=== PATIENT | male | born 1975 | race American Indian/Alaskan Native ===

== ENCOUNTER 2019-08-10 11:24 | Inpatient (IN) | payer OTHER ==
[2019-08-10] MEDS ORDERED: FAMOTIDINE 20 MG/2 ML INJ IV ONE ×2 (11:42→12:21)
[2019-08-10] MEDS ORDERED: PROPOFOL 200 MG/20 ML VIAL IV ONE ×2 (11:48→12:00)
[2019-08-10] MEDS ORDERED: SODIUM CHLORIDE 0.9% 1000 ML 2,000 ML ONE (11:51)
[2019-08-10] MEDS ORDERED: diphenhydrAMINE 50 MG/ML VIAL IV ONE (12:20)
[2019-08-10] MEDS ORDERED: PROPOFOL 1,000 MG/100 ML BOTTLE IV ONE ×2 (12:20→19:13)
--- NOTE | 2019-08-10 12:28 | Emergency Department Report ---
ED Allergic Reaction HPI - General Chief complaint: Allergic Reaction Stated complaint: ALLERGIC REACTION Time Seen by Provider: 08/10/19 12:18 Source: patient, EMS Mode of arrival: Stretcher Limitations: No Limitations - History of Present Illness Initial Comments: Patient is 44-year-old male with history of hypertension on lisinopril. Patient presented to the ER via EMS for evaluation of lip swelling, difficulty swallowing and difficulty breathing. Patient stated that he has been taking lisinopril for a while. Patient is anxious with significant upper and lower lips swelling and gargling. Patient stated that he is unable to lay flat because he feel that his throat is closing. I immediately recognized that there is an airway compromised and I immediately consulted anesthesia for possible difficult intubation. Patient already received Solu-Medrol 125 mg IV, Benadryl 25 mg by EMS. Patient also received a 0.3 mg of epinephrine IM. After multiple trial by anesthesiologist using different tools patient was finally intubated. For further information about intubation please refer to Dr. Caballero, anesthesiologist's note. MD Complaint: allergic reaction, facial swelling -: This morning Exposure: medication Symptoms: facial swelling, lip swelling, difficulty swallowing, difficulty breathing, orolingual swelling, hoarseness Severity: severe Treatment Prior to Arrival: benadryl, epinephrine, steroids Previous Allergy History: prior ED visit(s), angioedema - Related Data Allergies Allergy/AdvReac Type Severity Reaction Status Date / Time lisinopril Allergy Angioedema Verified 08/10/19 11:44 ED Review of Systems ROS: Stated complaint: ALLERGIC REACTION Other details as noted in HPI Comment: All other systems reviewed and negative Constitutional: denies: chills, fever Respiratory: shortness of breath, SOB at rest. denies: cough, wheezing Cardiovascular: denies: chest pain Gastrointestinal: denies: abdominal pain, nausea, vomiting Musculoskeletal: denies: back pain Neurological: denies: headache, weakness, numbness, paresthesias, confusion ED Past Medical Hx - Past Medical History Previous Medical History?: Yes Hx Hypertension: Yes - Social History Smoking Status: Unknown if ever smoked ED Physical Exam - General Limitations: No Limitations General appearance: in distress - Head Head exam: Present: atraumatic, normocephalic, normal inspection - Eye Eye exam: Present: normal appearance, PERRL - ENT ENT exam: Present: other (significant upper and lower lip swelling with his significant orolingual swelling.) - Neck Neck exam: Present: normal inspection, full ROM. Absent: tenderness, meningismus, lymphadenopathy, thyromegaly - Respiratory Respiratory exam: Present: normal lung sounds bilaterally - Cardiovascular Cardiovascular Exam: Present: regular rate, normal rhythm, normal heart sounds - GI/Abdominal GI/Abdominal exam: Present: soft, normal bowel sounds. Absent: distended, t enderness, guarding, rebound, rigid - Extremities Exam Extremities exam: Present: normal inspection, full ROM, normal capillary refill. Absent: tenderness, pedal edema, joint swelling, calf tenderness - Back Exam Back exam: Present: normal inspection, full ROM. Absent: CVA tenderness (R), muscle spasm - Neurological Exam Neurological exam: Present: alert, oriented X3, CN II-XII intact, normal gait, reflexes normal. Absent: motor sensory deficit - Psychiatric Psychiatric exam: Present: normal mood, anxious - Skin Skin exam: Present: warm, intact ED Course Vital Signs 08/10/19 08/10/19 08/10/19 11:35 11:54 12:00 Temperature 98.3 F 97.6 F Pulse Rate 100 H 110 H Respiratory 24 16 22 Rate Blood Pressure 182/100 Blood Pressure 224/134 [Right] O2 Sat by Pulse 98 100 Oximetry 08/10/19 08/10/19 08/10/19 12:35 13:00 13:10 Temperature Pulse Rate 107 H 106 H Respiratory 22 24 Rate Blood Pressure 183/121 Blood Pressure 188/114 [Right] O2 Sat by Pulse 98 100 Oximetry 08/10/19 08/10/19 08/10/19 13:30 14:00 14:40 Temperature Pulse Rate 84 75 63 Respiratory 22 18 20 Rate Blood Pressure Blood Pressure 139/83 123/83 87/52 [Right] O2 Sat by Pulse 100 100 99 Oximetry 08/10/19 08/10/19 08/10/19 15:12 15:18 15:43 Temperature Pulse Rate 59 L 59 L 56 L Respiratory 20 20 20 Rate Blood Pressure 86/52 Blood Pressure [Right] O2 Sat by Pulse 100 100 100 Oximetry 08/10/19 08/10/19 08/10/19 15:45 16:00 16:15 Temperature Pulse Rate 56 L 56 L 54 L Respiratory 19 19 19 Rate Blood Pressure 101/59 100/64 98/62 Blood Pressure 100/64 [Right] O2 Sat by Pulse 100 100 100 Oximetry 08/10/19 08/10/19 08/10/19 16:17 16:30 16:45 Temperature Pulse Rate 52 L 56 L 54 L Respiratory 20 20 Rate Blood Pressure 98/62 98/62 109/71 Blood Pressure [Right] O2 Sat by Pulse 100 100 100 Oximetry 08/10/19 08/10/19 08/10/19 17:00 17:15 17:30 Temperature Pulse Rate 56 L 63 55 L Respiratory 20 20 20 Rate Blood Pressure 102/67 120/56 103/62 Blood Pressure [Right] O2 Sat by Pulse 100 100 100 Oximetry 08/10/19 08/10/19 08/10/19 17:46 18:00 18:15 Temperature Pulse Rate 52 L 54 L 55 L Respiratory 20 20 20 Rate Blood Pressure 140/79 113/70 122/71 Blood Pressure [Right] O2 Sat by Pulse 100 100 100 Oximetry 08/10/19 08/10/19 08/10/19 18:30 18:45 19:00 Temperature Pulse Rate 57 L 57 L 54 L Respiratory 20 20 20 Rate Blood Pressure 124/63 116/74 120/72 Blood Pressure [Right] O2 Sat by Pulse 100 100 100 Oximetry 08/10/19 08/10/19 08/10/19 19:16 19:26 19:30 Temperature Pulse Rate 59 L 58 L 73 Respiratory 20 16 Rate Blood Pressure 149/77 149/77 157/95 Blood Pressure [Right] O2 Sat by Pulse 100 100 100 Oximetry 08/10/19 08/10/19 08/10/19 20:00 21:00 21:36 Temperature Pulse Rate 67 59 L Respiratory 20 20 Rate Blood Pressure 158/80 97/58 Blood Pressure 115/69 [Right] O2 Sat by Pulse 100 98 Oximetry 08/10/19 08/10/19 08/10/19 22:00 23:00 23:13 Temperature Pulse Rate 56 L 58 L 75 Respiratory 20 20 Rate Blood Pressure 104/63 147/79 147/79 Blood Pressure [Right] O2 Sat by Pulse 98 99 100 Oximetry 08/11/19 08/11/19 08/11/19 00:00 00:02 01:00 Temperature Pulse Rate 57 L 58 L 57 L Respiratory 20 20 20 Rate Blood Pressure 121/67 121/67 113/65 Blood Pressure [Right] O2 Sat by Pulse 99 98 99 Oximetry 08/11/19 08/11/19 08/11/19 02:00 03:00 03:23 Temperature Pulse Rate 52 L 52 L 52 L Respiratory 20 20 Rate Blood Pressure 126/67 123/72 123/72 Blood Pressure [Right] O2 Sat by Pulse 100 100 99 Oximetry 08/11/19 08/11/19 08/11/19 04:00 05:00 06:00 Temperature Pulse Rate 59 L 51 L 52 L Respiratory 20 20 20 Rate Blood Pressure 126/93 116/65 123/70 Blood Pressure [Right] O2 Sat by Pulse 100 99 100 Oximetry 08/11/19 08/11/19 08/11/19 07:00 07:08 08:00 Temperature 97.7 F Pulse Rate 50 L 60 50 L Respiratory 19 16 17 Rate Blood Pressure 113/64 124/75 Blood Pressure 117/73 [Right] O2 Sat by Pulse 100 100 99 Oximetry ED Medical Decision Making - Lab Data Result diagrams: 08/11/19 04:31 08/11/19 04:31 - Radiology Data Radiology results: report reviewed - Medical Decision Making Patient is 44-year-old male with history of hypertension on lisinopril. Patient presented to the ER via EMS for evaluation of lip swelling, difficulty swallowing and difficulty breathing. Patient stated that he has been taking lisinopril for a while. Patient is anxious with significant upper and lower lips swelling and gargling. Patient stated that he is unable to lay flat because he feel that his throat is closing. I immediately recognized that there is an airway compromised and I immediately consulted anesthesia for possible difficult intubation. Patient already received Solu-Medrol 125 mg IV, Benadryl 25 mg by EMS. Patient also received a 0.3 mg of epinephrine IM. After multiple trial by anesthesiologist using different tools patient was finally intubated. For further information about intubation please refer to Dr. Caballero, anesthesiologist's note. Labs reviewed and is unremarkable. Chest x-ray show satisfactory position for the endotracheal tube. Patient remained stable on the patient. I discussed the patient with Dr. Franz, he agreed to admit the patient to medical service for further management. Critical Care Time: Yes Critical care time in (mins) excluding proc time.: 60 Critical care attestation.: If time is entered above; I have spent that time in minutes in the direct care of this critically ill patient, excluding procedure time. ED Disposition Clinical Impression: Acute respiratory failure Angioedema Qualifiers: Encounter type: initial encounter Qualified Code(s): T78.3XXA - Angioneurotic edema, initial encounter Disposition: 09 OP ADMIT IP TO THIS HOSP Is pt being admited?: Yes Condition: Stable
[2019-08-10] MEDS: PROPOFOL 1,000 MG/100 ML BOTTLE IV SCH ×5 (12:30→19:15)
[2019-08-10] MEDS ORDERED: LIP THERAPY VASELINE TP PRN (12:35)
[2019-08-10] MEDS ORDERED: MINERAL OIL/PETROLATUM, WHITE OPHTH OINT 3.5 GM OU PRN (12:35)
[2019-08-10] MEDS ORDERED: fentaNYL DRIP Premix 2,000 MCG/100 ML BAG IV ONE ×2 (12:45→19:13)
[2019-08-10] MEDS ORDERED: MIDAZOLAM 5 MG/5 ML INJ MDV IV ONE ×2 (12:45→20:25)
--- NOTE | 2019-08-10 12:51 | Event Note ---
Date: 08/10/19 Anesthesia called to the ER for possible angioedema/swelling in the throat. Upon arrival pt was noted to be awake, alert, oriented, and spontaneously breathing on a facemask. Intubation process explained to him by MARY LOU. Pt. preoxygenated and then Propofol, lidocaine, and succs was given IV. Glidescope 3 used by DMITRY Castillo. [place] scope 4 used by DMITRY Cruz. An LMA was used in between attempts to maintain O2 saturation above 95%. MARY LOU Caballero successfully intubated using an 6.5 ETT with CO2 confirmation. Breath sound were positive bilaterally and the O2 saturation remained at 100%. An OG tube was placed to decompress any air in the stomach. Pt care handed back to ER and respiratory team. Prior to leaving the ER, anesthesia checked on the pt and he remained stable. A Propofol drip was initiated by the PHLEBOTOMY SUPPORT TECH.
[2019-08-10] MEDS ORDERED: MIDAZOLAM 5 MG/5 ML INJ MDV IV NR (13:00)
[2019-08-10] MEDS: fentaNYL DRIP Premix 2,000 MCG/100 ML BAG IV SCH ×3 (13:10→19:15)
[2019-08-10] MEDS: fentaNYL 100 MCG/2 ML INJ IV PRN ×2 (13:10→13:54)
[2019-08-10 13:14] LABS: Basophils # (Auto) 0.1 K/mm3 (0.0-0.1); Basophils % (Auto) 0.5 % (0.0-1.8); Eosinophils % (Auto) 0.3 % (0.0-4.3); Hemoglobin 14.1 gm/dl (11.8-15.2); Lymphocytes # (Auto) 2.6 K/mm3 (1.2-5.4); Lymphocytes % (Auto) 20.6 % (13.4-35.0); Mean Corpuscular HGB Conc 33 % (32-34); Mean Corpuscular Volume 94 fl (84-94); Monocytes # (Auto) 0.4 K/mm3 (0.0-0.8); Platelet Count 256 K/mm3 (140-440); Red Blood Count 4.46 M/mm3 (3.65-5.03); Red Cell Distribution Width 14.3 % (13.2-15.2)
[2019-08-10 13:33] LABS: Alanine Aminotransferase 28 units/L (7-56); Albumin 3.9 g/dL (3.9-5); BUN/Creatinine Ratio 10; Blood Urea Nitrogen 10 mg/dL (9-20); Calcium 8.9 mg/dL (8.4-10.2); Hemolysis Index 31
--- NOTE | 2019-08-10 13:45 | History and Physical Report ---
History of Present Illness Chief complaint: Unresponsive History of present illness: 44-year-old male with HTN, obesity presents to ED for evaluation. Patient is intubated and on ventilatory support at the time of my evaluation and is therefore unable to provide history. Patient history taken from ED staff, as well as medical record. As per staff. The patient presents to ED for evaluation of lip swelling and difficulty swallowing as well as difficulty breathing. Patient reports feeling short of breath as well as with mild swelling upon waking from sleep this morning. EMS was notified and upon arrival the patient was found to be in distress with swelling to his airway. Patient found to be in severe respiratory distress and treated with IV steroid therapy and transported to [facility] for further care and evaluation. Patient seen and evaluated in the emergency department. Lab and imaging studies reviewed. Patient found to be in acute distress and was unable to protect his airway. Patient also found to have increased work of breathing with acute hypoxemic respiratory failure. Patient was subsequently intubated by anesthesiology and placed on ventilatory support. Patient admitted to ICU for medical stabilization due to compromised airway resulting in acute respiratory failure. No further history obtainable. No prior admission for review. No medication listed at time of admission for reconciliation. Pulmonary team consulted in ED. Past History Past Medical History: hypertension Past Surgical History: No surgical history (Reviewed) Social history: single. denies: smoking, alcohol abuse, prescription drug abuse Family history: hypertension Medications and Allergies Allergies Allergy/AdvReac Type Severity Reaction Status Date / Time lisinopril Allergy Angioedema Verified 08/10/19 11:44 Active Meds: Active Medications Fentanyl (Sublimaze) 50 mcg IV Q10MIN PRN PRN Reason: ANALGESIA Last Admin: 08/10/19 13:10 Dose: 50 mcg Documented by: Hydrophilic Ointment (Vaseline Lip Therapy) 1 applic TP Q2HR PRN PRN Reason: Dry Lips Propofol (Diprivan 10 Mg/Ml) 1,000 mg in 100 mls @ 3.103 mls/hr IV TITR ADOLFO; Protocol Last Admin: 08/10/19 13:13 Dose: 30 mcg/kg/min, 18.615 mls/hr Documented by: Fentanyl Citrate (Fentanyl Drip Premix) 2,000 mcg in 100 mls @ 5.171 mls/hr IV TITR ADOLFO; Protocol Last Titration: 08/10/19 13:24 Dose: 0.39 mcg/kg/hr, 2 mls/hr Documented by: Midazolam HCl (Versed) 5 mg IV ONCE NR Stop: 08/10/19 13:59 Last Admin: 08/10/19 12:46 Dose: 5 mg Documented by: Multi-Ingred Cream/Lotion/Oil/Oint (Artificial Tears Ophth Oint) 1 applic OU Q4HR PRN PRN Reason: Dry Eye(s) Review of Systems ROS unobtainable: due to endotracheal tube Exam - Constitutional Vitals: Temp Pulse Resp BP Pulse Ox 98.3 F 107 H 24 183/121 98 08/10/19 11:54 08/10/19 12:35 08/10/19 13:10 08/10/19 12:35 08/10/19 12:35 General appearance: Present: mild distress - EENT Eyes: Present: miosis ENT: hearing decreased, other (Oral pharyngeal edema) - Neck Neck: Present: supple, normal ROM - Respiratory Respiratory effort: labored, accessory muscle use Respiratory: bilateral: diminished, wheezing - Cardiovascular Heart Sounds: Present: S1 & S2. Absent: rub, click - Extremities Extremities: pulses symmetrical Extremity abnormal: edema Peripheral Pulses: within normal limits - Abdominal General gastrointestinal: Present: soft, non-tender, non-distended, normal bowel sounds Male genitourinary: Present: normal - Integumentary Integumentary: Present: clear, warm, dry - Musculoskeletal Musculoskeletal: generalized weakness - Psychiatric Psychiatric: other (Intubated sedated and on vent support) - Neurologic Neurologic: moves all extremities, no gait normal Results - Labs CBC & Chem 7: 08/10/19 12:49 08/10/19 12:49 Labs: Abnormal lab results 08/10/19 08/10/19 Range/Units 12:49 12:49 WBC 12.4 H (4.5-11.0) K/mm3 Seg Neutrophils % 75.6 H (40.0-70.0) % Seg Neutrophils # 9.3 H (1.8-7.7) K/mm3 Sodium 136 L (137-145) mmol/L Glucose 146 H (75-100) mg/dL AST 42 H (5-40) units/L Assessment and Plan - Patient Problems (1) Acute respiratory failure Current Visit: Yes Status: Acute Plan to address problem: Patient intubated and placed on ventilatory support, supplemental oxygen, nebulizer therapy. Wean vent as tolerated, pulmonary team consulted in ED. Daily SBT, sedation holiday, ABG in a.m. The high probability of a clinically significant, sudden or life threatening deterioration of the [cardiac, pulmonary,] system(s) required my full and direct attention, intervention and personal management. The aggregate critical care time was [65] minutes. This time is in addition to time spent performing reported procedures but includes the following: [X] Data Review and interpretation [X] Patient assessment and monitoring of vital signs [X] Documentation [X] Medication orders and management (2) Angioedema Current Visit: Yes Status: Acute Qualifiers: Encounter type: initial encounter Qualified Code(s): T78.3XXA - Angioneurotic edema, initial encounter Plan to address problem: IV steroid therapy, IV Benadryl, supportive care, lisinopril allergy listed. (3) Malignant hypertension Current Visit: Yes Status: Acute Plan to address problem: Monitor blood pressure every shift, IV hydralazine as needed for systolic blood pressure greater than 165. (4) SIRS (systemic inflammatory response syndrome) Current Visit: Yes Status: Acute Plan to address problem: CBC, CMP, urinalysis, chest x-ray, empiric IV antibiotic therapy. (5) DVT prophylaxis Current Visit: Yes Status: Acute Plan to address problem: SCD to bilateral lower extremities while in bed, prophylactic heparin.
--- NOTE | 2019-08-10 13:45 | XRay Report ---
CHEST 1 VIEW 08/10/2019 12:51 PM INDICATION / CLINICAL INFORMATION: ETT placement. COMPARISON: None available. FINDINGS: SUPPORT DEVICES: ET tube and NG tube project in expected position. HEART / MEDIASTINUM: No significant abnormality. LUNGS / PLEURA: Mild linear atelectasis is seen within the right upper and left lower lobes. No pneum othorax. ADDITIONAL FINDINGS: No significant additional findings. IMPRESSION: 1. No acute findings. Signer Name: Ronnie Huff MD Signed: 08/10/2019 1:41 PM Workstation Name: [id number]
[2019-08-10 14:05] LABS: ABG Base Excess -1.2 mmol/L (-2.0-3.0); ABG HCO3 24.8 mmol/L (20.0-26.0); ABG Methemoglobin 0.7 % (0.0-1.5); ABG Oxygen Saturation 99.3 % (95.0-99.0); ABG PH 7.349 pH Units (7.350-7.450); ABG PO2 226.4 mm Hg (80.0-90.0)
[2019-08-10] MEDS ORDERED: methylPREDNISolone Sod Succinate 125 MG/2 ML INJ ONE (14:52)
[2019-08-10] MEDS: methylPREDNISolone Sod Succinate 40 MG/1 ML INJ IV SCH (15:03)
--- NOTE | 2019-08-10 15:58 | Consultation ---
History of Present Illness Consult date: 08/10/19 Requesting physician: KASEY LEBRON Reason for consult: other (Angioedema; Acute Respiratory Failure on MVS) History of present illness: PULMONARY/CCM CONSULT NOTE (Full dictation # [id number]) Please see dictated notes for full details Past History Past Medical History: hypertension Past Surgical History: No surgical history (Reviewed) Social history: single. denies: smoking, alcohol abuse, prescription drug abuse Family history: hypertension Medications and Allergies Allergies Allergy/AdvReac Type Severity Reaction Status Date / Time lisinopril Allergy Angioedema Verified 08/10/19 11:44 Active Meds: Active Medications Fentanyl (Sublimaze) 50 mcg IV Q10MIN PRN PRN Reason: ANALGESIA Last Admin: 08/10/19 13:54 Dose: 50 mcg Documented by: Heparin Sodium (Porcine) (Heparin) 5,000 unit SUB-Q Q12HR ADOLFO Hydralazine HCl (Apresoline) 10 mg IV Q6HR PRN PRN Reason: Hypertension Hydrophilic Ointment (Vaseline Lip Therapy) 1 applic TP Q2HR PRN PRN Reason: Dry Lips Propofol (Diprivan 10 Mg/Ml) 1,000 mg in 100 mls @ 3.103 mls/hr IV TITR ADOLFO; Protocol Last Titration: 08/10/19 15:00 Dose: 15 mcg/kg/min, 9.308 mls/hr Documented by: Fentanyl Citrate (Fentanyl Drip Premix) 2,000 mcg in 100 mls @ 5.171 mls/hr IV TITR ADOLFO; Protocol Last Titration: 08/10/19 14:41 Dose: 0.39 mcg/kg/hr, 2 mls/hr Documented by: Levofloxacin/Dextrose (Levaquin 500mg/100ml) 500 mg in 100 mls @ 100 mls/hr IV Q24H ADOLFO; Protocol Last Admin: 08/10/19 15:04 Dose: 100 mls/hr Documented by: Methylprednisolone Sodium Succinate (Solu-Medrol) 40 mg IV Q8HR ADOLFO Last Admin: 08/10/19 15:03 Dose: 40 mg Documented by: Multi-Ingred Cream/Lotion/Oil/Oint (Artificial Tears Ophth Oint) 1 applic OU Q4HR PRN PRN Reason: Dry Eye(s) Sodium Chloride (Sodium Chloride Flush Syringe 10 Ml) 10 ml IV BID ADOLFO Sodium Chloride (Sodium Chloride Flush Syringe 10 Ml) 10 ml IV PRN PRN PRN Reason: LINE FLUSH Physical Examination Vital signs: Vital Signs Resp 24 08/10/19 11:35 Results - Laboratory Findings CBC and BMP: 08/11/19 04:31 08/11/19 04:31 ABG ABG pH 7.349 pH Units (7.350-7.450) L 08/10/19 13:50 ABG pCO2 46.0 mm Hg 08/10/19 13:50 ABG pO2 226.4 mm Hg (80.0-90.0) H 08/10/19 13:50 ABG O2 Saturation 99.3 % (95.0-99.0) H 08/10/19 13:50 Abnormal lab findings: Abnormal Labs 08/10/19 08/10/19 08/10/19 12:49 12:49 13:50 WBC 12.4 H Seg Neutrophils % 75.6 H Seg Neutrophils # 9.3 H ABG pH 7.349 L ABG pO2 226.4 H ABG O2 Saturation 99.3 H ABG Hemoglobin 13.9 L Sodium 136 L Glucose 146 H AST 42 H
[2019-08-10] MEDS ORDERED: SUCCINYLCHOLINE CHLORIDE 200 MG/10 ML INJ MDV ONE (20:25)
[2019-08-11] MEDS ORDERED: methylPREDNISolone Sod Succinate 40 MG/1 ML INJ ONE ×3 (00:05→14:27)
[2019-08-11] MEDS ORDERED: HEPARIN 5,000 UNIT/1 ML VIAL ONE ×2 (00:05→09:35)
[2019-08-11] MEDS ORDERED: SODIUM CHLORIDE 0.9% 1000 ML 1,000 ML ONE ×2 (00:05→14:26)
[2019-08-11] MEDS: HEPARIN 5,000 UNIT/1 ML VIAL SUB-Q SCH ×3 (00:06→23:02)
[2019-08-11] MEDS: methylPREDNISolone Sod Succinate 40 MG/1 ML INJ IV SCH ×4 (00:07→23:00)
[2019-08-11] MEDS: SODIUM CHLORIDE 0.9% 1000 ML 1,000 ML IV SCH ×2 (00:11→14:28)
[2019-08-11 04:04] LABS: ABG Base Excess -0.6 mmol/L (-2.0-3.0); ABG HCO3 24.7 mmol/L (20.0-26.0); ABG Methemoglobin 0.6 % (0.0-1.5); ABG Oxygen Saturation 98.3 % (95.0-99.0); ABG PCO2 43.2 mm Hg; ABG PH 7.375 pH Units (7.350-7.450); ABG PO2 124.2 mm Hg (80.0-90.0)
[2019-08-11 05:12] LABS: Hematocrit 40.1 % (35.5-45.6); Hemoglobin 13.3 gm/dl (11.8-15.2); Mean Corpuscular HGB Conc 33 % (32-34); Mean Corpuscular Volume 94 fl (84-94); Platelet Count 243 K/mm3 (140-440); Red Blood Count 4.27 M/mm3 (3.65-5.03); Red Cell Distribution Width 14.4 % (13.2-15.2)
[2019-08-11] MEDS ORDERED: fentaNYL DRIP Premix 2,000 MCG/100 ML BAG IV ONE ×2 (05:26→20:10)
[2019-08-11] MEDS: fentaNYL DRIP Premix 2,000 MCG/100 ML BAG IV SCH ×2 (05:28→20:10)
[2019-08-11 05:35] LABS: BUN/Creatinine Ratio 12; Blood Urea Nitrogen 12 mg/dL (9-20); Calcium 8.7 mg/dL (8.4-10.2); Hemolysis Index 3
[2019-08-11 06:55] LABS: Band Neutrophils # (Manual) 0.3 K/mm3; Basophils % (Manual) 0 % (0.0-1.8); Eosinophils % (Manual) 0 % (0.0-4.3); Total Cells Counted 100
[2019-08-11 06:56] LABS: Anisocytosis Few; Platelet Estimate Consistent w Auto
--- NOTE | 2019-08-11 08:55 | Consultation ---
PULMONARY CRITICAL CARE CONSULTATION NOTE CONSULTING PHYSICIAN: Dr. Franz. REASON FOR CONSULTATION: Acute hypoxemic respiratory failure, on mechanical ventilator support, angioedema. CHIEF COMPLAINT AND HISTORY OF PRESENT ILLNESS: The patient is a 44-year-old -[place] male with past medical history significant amongst other things for diagnoses of hypertension as well as obesity. He is on lisinopril for his hypertension. He came into the Emergency Room complaining of lip swelling, difficulty swallowing and difficulty breathing. He had been taking his lisinopril for a few months. He was anxious at the time that he showed up, he was complaining of orthopnea. He felt like his throat was closing up on him. The patient was given Solu-Medrol 125 mg IV, Benadryl 25 mg and received 0.3 mg of epinephrine IM, after multiple trials by the anesthesiologist, he was ultimately intubated. Post-intubation, we are asked to assist with management. When I stopped by to see him, he was resting in bed. He was sedated to RASS scale of about -1. He was able to respond. He denied any more throat pain. His breathing was easier. He denied any nausea, vomiting before coming to the hospital. He denied any trauma. With regards to tobacco use/abuse history, I believe he nodded no to tobacco use, this really is as much of the history of presentation as I have. PAST MEDICAL HISTORY: Hypertension. He is obese. PAST SURGICAL HISTORY: Unknown. MEDICATIONS: He was on at the time I stopped by to see him were reviewed, pertinent medications include the following: Fentanyl drip was going at about 10 mcg/kg per hour, heparin 5000 units subcutaneous q.12 hours, hydralazine 10 mg IV q. 6 hours p.r.n. elevated blood pressure. Propofol drip was going at 15 mcg per kilogram per minute, fentanyl as mentioned above, Levaquin 500 mg IV daily, Solu-Medrol 40 mg IV q.8 hours. ALLERGIES: LISINOPRIL NOW. DIET: Obese gentleman, acute weight loss or gain history is unknown. FAMILY AND SOCIAL HISTORY: Lives in the community. Alcohol, tobacco, or illicit drug use or abuse history is unknown. Family history is otherwise unknown. REVIEW OF SYSTEMS: Unobtainable mostly secondary to the patient's medical and mental condition. Since he has been here, no gross hematochezia or melena, no gross hematuria, no hematuria, no bloody tracheal secretions, no witnessed seizures. He denies any chest pain to me. This really is as much of the history of presentation as I have. PHYSICAL EXAMINATION: VITAL SIGNS: On arrival, temperature 98.3 degrees Fahrenheit, pulse of 100, respiratory rate of 24, blood pressure 182/100 as high as 224/136, O2 sats were 98%, inspired oxygen concentration at that time was not recorded. When I stopped by to see him, his O2 sats were 98% that was on the assist control mode of ventilation, tidal volume was 500, rate set at 20. FiO2 was down to 35%, PEEP of 6. GENERAL: Middle-aged obese -[place] male, normocephalic, atraumatic, resting in bed without significant patient ventilator dyssynchrony. HEAD, EARS, NOSE AND THROAT: He is anicteric. No conjunctival erythema. Oropharynx was moist. He had moderate oropharyngeal secretions and there was evidence swelling to his lips. Endotracheal tube was in place, taped at the lips around 24 cm. There was some neck swelling noted. No gross jugular venous distention. Grossly, there were no palpable lymph nodes in the supraclavicular or submandibular lymph node chains. LUNGS: Auscultation of both lung dickson was unremarkable. Lungs were clear bilaterally with good bilateral air movement. HEART: Heart sounds 1 and 2 are heard. They were regular in rate and rhythm at the time of my evaluation without any rubs or murmurs. ABDOMEN: Soft, full, bowel sounds are positive, nontender, no palpable hepatosplenomegaly. EXTREMITIES: Without overt digital clubbing or cyanosis and no pedal edema. Pedal pulses were 2+ bilaterally. NEUROLOGIC: Pupils were equal, round, about 3 mm, sluggishly reactive to light. Extraocular muscle movements were intact. He moved all 4 extremities spontaneously. SKIN: Normal turgor without overt cellulitis or rash. LABORATORY DATA: From my review are as follows: Admission white cell count 12,400 with hemoglobin of 14.1, hematocrit of 42.0, platelet count of 256. No band forms reported. Arterial blood gas initially showed a pH of 7.35, pCO2 of 46, pO2 of 226 that was on 80% FiO2 and I believe the above-mentioned vent settings. Serum sodium was 136, potassium was 4.5, chloride was 99, bicarbonate 24, BUN 10, creatinine 1.0, glucose 146. AST was slightly elevated at 42, otherwise liver function tests are within normal limits. No microbiology studies. Chest x-ray shows an ET tube with the tip at the level of the clavicular heads and the nasogastric tube coursing through the mediastinum and terminates in the stomach. No gross pneumothorax, no gross bony fracture that I can see. ASSESSMENT: 1. Acute hypoxemic respiratory failure, status post intubation. 2. Angioedema, presumably secondary to lisinopril. 3. Obesity. 4. Oropharyngeal dysphagia. 5. Leukocytosis. 6. Hypertensive urgency. 7. Mild hyponatremia. 8. Hyperglycemia. PLAN: We will keep him on full mechanical ventilatory support. We will go ahead and continue systemic steroids. I will also schedule antihistamine therapy with Pepcid as well as Benadryl in the short term. Ventilator-associated pneumonia bundle has been introduced. Bronchodilators will be ordered on a p.r.n. basis. Enteral nutrition will be the feeding modality of choice. He will be placed on GI prophylaxis as well as DVT prophylaxis. No acute indication for empiric antibiotic therapy in my opinion. Antihypertensive medications will be adjusted by the attending physician. Flu and pneumonia vaccination will be addressed per protocol. Thank you very much for the consult. We will follow along and make further recommendations as picture progresses/becomes clearer. He is critically ill on life-sustaining interventions including mechanical ventilatory support at high risk of from decompensation in the cardiopulmonary system. At this time, I have spent about 35-40 minutes of critical care time without overlap and excluding any procedural time that may be necessary. JOB# [id number] DWAINE/JULIANO
[2019-08-11] MEDS ORDERED: FAMOTIDINE 20 MG/2 ML INJ IV ONE (09:35)
[2019-08-11] MEDS ORDERED: diphenhydrAMINE 50 MG/ML VIAL ONE (09:36)
[2019-08-11] MEDS: FAMOTIDINE 20 MG/2 ML INJ IV SCH ×2 (09:36→23:01)
[2019-08-11] MEDS: diphenhydrAMINE 50 MG/ML VIAL IV SCH ×2 (09:38→23:01)
--- NOTE | 2019-08-11 09:57 | Progress Note ---
Assessment and Plan Acute respiratory failure with upper airway obstruction Angioedema Malignant hypertension SIRS (systemic inflammatory response syndrome) PLAN -CT Neck to r/o any anatomical reasons fro such a difficult intubation -No clinical evidence of acute infection; stop antibiotics and follow clinically -Steroids, H2 antagonists and anti-histamines -Add lisinopril to allergy profile -Blood pressure control -VAP bundle addressed -Aspiration precautions, HOB>40 degrees - Lung protective strategies -Adjust minute ventilation for better acid-base balance -CXR, ABG in am -CBC, BMP -Daily SAT, SBT as tolerated -Hold tube feedings for 24 hours, will reassess in the morning , if extubated will proceed to oral feeding -Keep off sedation t, intermittent doses for agitation management and analgesia -VTE prophylaxis -Stress ulcer prophylaxis - Accuchecks with glycemic control for SSI (While critically ill target blood glucose of 140-180 mg/dL; avoid hypoglycemia) - mobility protocol for pressure ulcer prevention - Monitor hemodynamics closely -Monitor electrolyte profile closely and replete as indicated -Chronic home medications, resume as clinically indicated CONDITION: CRITICAL PROGNOSIS: FAIR CODE STATUS: FULL CODE The high probability of a clinically significant, sudden or life-threatening deterioration of the [respiratory, ] system(s) required my full and direct attention, intervention and personal management. The aggregate critical care time was [35] minutes without overlap. Time includes spent on; [x] Data Review and interpretation [x] Patient assessment and monitoring of vital signs [x] Documentation [x] Medication orders and management Subjective Date of service: 08/11/19 Interval history: Patient is seen today for: acute hypoxemic respiratory failure on MVS; angioedema with upper airway obstruction: malignant hypertension Seen and examined at bedside; 24hour events reviewed; nursing and respiratory care staff consulted; no adverse overnight events reported to me; Vitals, labs, medications, chart and imaging reviewed. Sitting up, orally intubated awake and alert. Per RT when he was placed on PSV, he complained he could not breathe. ED physician states he was a very difficult airway and the absence of tongue swelling is potentially deceiving Objective Vital Signs - 12hr 08/10/19 08/10/19 08/10/19 22:00 23:00 23:13 Temperature Pulse Rate 56 L 58 L 75 Respiratory 20 20 Rate Blood Pressure 104/63 147/79 147/79 Blood Pressure [Right] O2 Sat by Pulse 98 99 100 Oximetry 08/11/19 08/11/19 08/11/19 00:00 00:02 01:00 Temperature Pulse Rate 57 L 58 L 57 L Respiratory 20 20 20 Rate Blood Pressure 121/67 121/67 113/65 Blood Pressure [Right] O2 Sat by Pulse 99 98 99 Oximetry 08/11/19 08/11/19 08/11/19 02:00 03:00 03:23 Temperature Pulse Rate 52 L 52 L 52 L Respiratory 20 20 Rate Blood Pressure 126/67 123/72 123/72 Blood Pressure [Right] O2 Sat by Pulse 100 100 99 Oximetry 08/11/19 08/11/19 08/11/19 04:00 05:00 06:00 Temperature Pulse Rate 59 L 51 L 52 L Respiratory 20 20 20 Rate Blood Pressure 126/93 116/65 123/70 Blood Pressure [Right] O2 Sat by Pulse 100 99 100 Oximetry 08/11/19 08/11/19 08/11/19 07:00 07:08 08:00 Temperature 97.7 F Pulse Rate 50 L 60 54 L Respiratory 19 16 16 Rate Blood Pressure 113/64 124/75 Blood Pressure 117/73 124/75 [Right] O2 Sat by Pulse 100 100 98 Oximetry 08/11/19 09:00 Temperature Pulse Rate 57 L Respiratory 16 Rate Blood Pressure Blood Pressure 139/85 [Right] O2 Sat by Pulse 100 Oximetry Constitutional: no acute distress, alert, other (ETT at 24 cm at the lip) Eyes: non-icteric ENT: oropharynx moist, other (no tongue or lip swelling) Neck: supple, no JVD Effort: normal Ascultation: Bilateral: clear, diminished breath sounds Cardiovascular: regular rate and rhythm, other (S1,S2, no murmurs, gallops or rubs) Gastrointestinal: normoactive bowel sounds, soft, non-tender, non-distended Integumentary: normal Extremities: no cyanosis, no edema, pink and warm, pulses normal Neurologic: normal mental status, non-focal exam, pupils equal and round, motor strength normal and Psychiatric: mood appropriate, affect normal CBC and BMP: 08/11/19 04:31 08/11/19 04:31 ABG, PT/INR, D-dimer: ABG ABG pH 7.375 pH Units (7.350-7.450) 08/11/19 03:45 ABG pCO2 43.2 mm Hg 08/11/19 03:45 ABG pO2 124.2 mm Hg (80.0-90.0) H 08/11/19 03:45 ABG O2 Saturation 98.3 % (95.0-99.0) 08/11/19 03:45 Abnormal lab findings: Abnormal Labs 08/10/19 08/10/19 08/10/19 12:49 12:49 13:50 WBC 12.4 H Seg Neutrophils % 75.6 H Seg Neuts % (Manual) Lymphocytes % (Manual) Seg Neutrophils # 9.3 H Seg Neutrophils # Man Lymphocytes # (Manual) ABG pH 7.349 L ABG pO2 226.4 H ABG O2 Saturation 99.3 H ABG Hemoglobin 13.9 L Sodium 136 L Carbon Dioxide Glucose 146 H AST 42 H 08/11/19 08/11/19 08/11/19 03:45 04:31 04:31 WBC 13.2 H Seg Neutrophils % Seg Neuts % (Manual) 93.0 H Lymphocytes % (Manual) 4.0 L Seg Neutrophils # Seg Neutrophils # Man 12.3 H Lymphocytes # (Manual) 0.5 L ABG pH ABG pO2 124.2 H ABG O2 Saturation ABG Hemoglobin 13.8 L Sodium Carbon Dioxide 21 L Glucose 135 H AST Chest x-ray: image reviewed Allied health notes reviewed: RT
--- NOTE | 2019-08-11 11:15 | Progress Note ---
Assessment and Plan / Acute respiratory failure due to angioedema from lisinopril Patient intubated and placed on ventilatory support, supplemental oxygen, nebulizer therapy. Wean vent as tolerated, pulmonary team consulted in ED. Daily SBT, sedation holiday / Angioedema IV steroid therapy, IV Benadryl, supportive care, lisinopril allergy listed. / Malignant hypertension Monitor blood pressure every shift, IV hydralazine as needed for systolic blood pressure greater than 165. / SIRS (systemic inflammatory response syndrome) likely from angioedema empiric IV antibiotic therapy for now, follow cx / DVT prophylaxis SCD to bilateral lower extremities while in bed, prophylactic heparin. The high probability of a clinically significant, sudden or life threatening deterioration of the [cardiac, pulmonary,] system(s) required my full and direct attention, intervention and personal management. The aggregate critical care time was [65] minutes. This time is in addition to time spent performing reported procedures but includes the following: [X] Data Review and interpretation [X] Patient assessment and monitoring of vital signs [X] Documentation [X] Medication orders and management Subjective Date of service: 08/11/19 Interval history: Patient seen and examined Intubated, but communicates with writing denies chest pain reviewed vitals and lab Objective - Constitutional Vitals: Vital Signs - 12hr 08/11/19 08/11/19 08/11/19 00:00 00:02 01:00 Temperature Pulse Rate 57 L 58 L 57 L Respiratory 20 20 20 Rate Blood Pressure 121/67 121/67 113/65 Blood Pressure [Right] O2 Sat by Pulse 99 98 99 Oximetry 08/11/19 08/11/19 08/11/19 02:00 03:00 03:23 Temperature Pulse Rate 52 L 52 L 52 L Respiratory 20 20 Rate Blood Pressure 126/67 123/72 123/72 Blood Pressure [Right] O2 Sat by Pulse 100 100 99 Oximetry 08/11/19 08/11/19 08/11/19 04:00 05:00 06:00 Temperature Pulse Rate 59 L 51 L 52 L Respiratory 20 20 20 Rate Blood Pressure 126/93 116/65 123/70 Blood Pressure [Right] O2 Sat by Pulse 100 99 100 Oximetry 08/11/19 08/11/19 08/11/19 07:00 07:08 08:00 Temperature 97.7 F Pulse Rate 50 L 60 54 L Respiratory 19 16 16 Rate Blood Pressure 113/64 124/75 Blood Pressure 117/73 124/75 [Right] O2 Sat by Pulse 100 100 98 Oximetry 08/11/19 09:00 Temperature Pulse Rate 57 L Respiratory 16 Rate Blood Pressure Blood Pressure 139/85 [Right] O2 Sat by Pulse 100 Oximetry General appearance: Present: no acute distress, well-nourished, other (intubated) - EENT Eyes: PERRL, EOM intact ENT: hearing intact, clear oral mucosa Ears: bilateral: normal - Neck Neck: supple, normal ROM - Respiratory Respiratory effort: normal, other (on mechanical ventilation) Respiratory: bilateral: CTA - Cardiovascular Rhythm: regular Heart Sounds: Present: S1 & S2. Absent: gallop, rub Extremities: pulses intact, No edema, normal color, Full ROM - Gastrointestinal General gastrointestinal: Present: soft, non-tender, non-distended, normal bowel sounds - Integumentary Integumentary: clear, warm, dry - Musculoskeletal Musculoskeletal: 1, strength equal bilaterally - Neurologic Neurologic: moves all extremities - Psychiatric Psychiatric: cooperative, other (follows commend) - Labs CBC & Chem 7: 08/11/19 04:31 08/11/19 04:31 Labs: Abnormal lab results 08/10/19 08/10/19 08/10/19 Range/Units 12:49 12:49 13:50 WBC 12.4 H (4.5-11.0) K/mm3 Seg Neutrophils % 75.6 H (40.0-70.0) % Seg Neuts % (Manual) (40.0-70.0) % Lymphocytes % (Manual) (13.4-35.0) % Seg Neutrophils # 9.3 H (1.8-7.7) K/mm3 Seg Neutrophils # Man (1.8-7.7) K/mm3 Lymphocytes # (Manual) (1.2-5.4) K/mm3 ABG pH 7.349 L (7.350-7.450) pH Units ABG pO2 226.4 H (80.0-90.0) mm Hg ABG O2 Saturation 99.3 H (95.0-99.0) % ABG Hemoglobin 13.9 L (14.0-18.0) gm/dl Sodium 136 L (137-145) mmol/L Carbon Dioxide (22-30) mmol/L Glucose 146 H (75-100) mg/dL AST 42 H (5-40) units/L 08/11/19 08/11/19 08/11/19 Range/Units 03:45 04:31 04:31 WBC 13.2 H (4.5-11.0) K/mm3 Seg Neutrophils % (40.0-70.0) % Seg Neuts % (Manual) 93.0 H (40.0-70.0) % Lymphocytes % (Manual) 4.0 L (13.4-35.0) % Seg Neutrophils # (1.8-7.7) K/mm3 Seg Neutrophils # Man 12.3 H (1.8-7.7) K/mm3 Lymphocytes # (Manual) 0.5 L (1.2-5.4) K/mm3 ABG pH (7.350-7.450) pH Units ABG pO2 124.2 H (80.0-90.0) mm Hg ABG O2 Saturation (95.0-99.0) % ABG Hemoglobin 13.8 L (14.0-18.0) gm/dl Sodium (137-145) mmol/L Carbon Dioxide 21 L (22-30) mmol/L Glucose 135 H (75-100) mg/dL AST (5-40) units/L - Imaging and cardiology Chest x-ray: report reviewed CT Scan - head: report reviewed
--- NOTE | 2019-08-11 14:38 | Cat Scan Report ---
NECK CT 08/11/2019 HISTORY: Tracheal stenosis, edema FINDINGS: Unenhanced and enhanced CT images of the soft tissues of the neck were obtained. Patient has an endotracheal tube and nasogastric tube in position. There is no evidence of abnormal soft tissue mass, fluid collection, or inflammation. I note that the supraglottic larynx is collapsed around the endotracheal tube, which is a common finding. There is n o definite evidence of abnormal mucosal thickening. There is a normal CT appearance to the parotid, submandibular, and thyroid glands. Vascular structures are unremarkable. IMPRESSION: No significant abnormality. All CT scans at this location are performed using dose reduction to ALARA by means of automated expos ure control. Signer Name: Jemal Zhu MD Signed: 08/11/2019 2:33 PM Workstation Name: [id number]
[2019-08-11] MEDS ORDERED: fentaNYL 100 MCG/2 ML INJ ONE (19:10)
[2019-08-11] MEDS ORDERED: hydrALAZINE 20 MG/1 ML INJ ONE (19:14)
[2019-08-11] MEDS: hydrALAZINE 20 MG/1 ML INJ IV PRN (19:14)
[2019-08-11] MEDS: fentaNYL 100 MCG/2 ML INJ IV PRN (19:15)
--- NOTE | 2019-08-12 02:42 | XRay Report ---
CHEST 1 VIEW INDICATION / CLINICAL INFORMATION: follow up respiratory failure. COMPARISON: 08/10/2019 FINDINGS: SUPPORT DEVICES: Endotracheal tube and nasogastric tube are again noted HEART / MEDIASTINUM: No significant abnormality. LUNGS / PLEURA: No significant pulmonary or pleural abnormality.. No pneumothorax. ADDITIONAL FINDINGS: No significant additional findings. IMPRESSION: 1. No significant change. Signer Name: Guy Wright MD Signed: 08/12/2019 2:38 AM Workstation Name: [email or web address]
[2019-08-12] MEDS: SODIUM CHLORIDE 0.9% 1000 ML 1,000 ML IV SCH (03:39)
[2019-08-12] MEDS: methylPREDNISolone Sod Succinate 40 MG/1 ML INJ IV SCH ×2 (05:26→14:41)
[2019-08-12] MEDS: fentaNYL DRIP Premix 2,000 MCG/100 ML BAG IV SCH (06:48)
--- NOTE | 2019-08-12 09:11 | Progress Note ---
Assessment and Plan Acute respiratory failure with upper airway obstruction Angioedema Malignant hypertension SIRS (systemic inflammatory response syndrome) PLAN Get a cuff leak, if acceptable extubate All other care as documented below Bedside swallow evaluation once extubated, if he passes start clears and advance as tolerated -CT Neck to r/o any anatomical reasons - normal -No clinical evidence of acute infection; stop antibiotics and follow clinically -Steroids, H2 antagonists and anti-histamines -Blood pressure control -VAP bundle addressed -Aspiration precautions, HOB>40 degrees - Lung protective strategies -Adjust minute ventilation for better acid-base balance -Daily SAT, SBT as tolerated -VTE prophylaxis -Stress ulcer prophylaxis - Accuchecks with glycemic control for SSI (While critically ill target blood glucose of 140-180 mg/dL; avoid hypoglycemia) - mobility protocol for pressure ulcer prevention - Monitor hemodynamics closely -Monitor electrolyte profile closely and replete as indicated -Chronic home medications, resume as clinically indicated CONDITION: CRITICAL PROGNOSIS: FAIR CODE STATUS: FULL CODE The high probability of a clinically significant, sudden or life-threatening deterioration of the [respiratory, ] system(s) required my full and direct attention, intervention and personal management. The aggregate critical care time was [35] minutes without overlap. Time includes spent on; [x] Data Review and interpretation [x] Patient assessment and monitoring of vital signs [x] Documentation [x] Medication orders and management Subjective Date of service: 08/12/19 Interval history: Patient is seen today for: acute hypoxemic respiratory failure on MVS; angioedema with upper airway obstruction: malignant hypertension Seen and examined at bedside; 24hour events reviewed; nursing and respiratory c are staff consulted; no adverse overnight events reported to me; Vitals, labs, medications, chart and imaging reviewed. Sitting up, orally intubated awake and alert. ON PSV, tolerating it well, no tongue swelling Objective Vital Signs - 12hr 08/11/19 08/11/19 08/11/19 21:20 21:51 22:50 Temperature Pulse Rate 68 106 H 65 Pulse Rate [ From Monitor] Respiratory 20 Rate Blood Pressure 129/66 O2 Sat by Pulse 99 97 Oximetry 08/11/19 08/11/19 08/11/19 22:54 23:00 23:16 Temperature Pulse Rate 70 64 66 Pulse Rate [ From Monitor] Respiratory Rate Blood Pressure 145/71 152/73 O2 Sat by Pulse 97 94 95 Oximetry 0108/11/19 08/12/19 23:30 23:45 00:00 Temperature Pulse Rate 61 59 L 59 L Pulse Rate [ 59 L From Monitor] Respiratory 20 20 20 Rate Blood Pressure 132/72 136/73 128/69 O2 Sat by Pulse 94 93 94 Oximetry 08/12/19 08/12/19 08/12/19 00:10 00:16 00:30 Temperature Pulse Rate 60 61 62 Pulse Rate [ From Monitor] Respiratory 20 20 Rate Blood Pressure 130/72 128/69 O2 Sat by Pulse 97 100 Oximetry 08/12/19 08/12/19 08/12/19 00:40 00:45 01:00 Temperature Pulse Rate 58 L 57 L 70 Pulse Rate [ From Monitor] Respiratory 20 15 Rate Blood Pressure 144/74 144/73 144/74 O2 Sat by Pulse 100 94 98 Oximetry 08/12/19 08/12/19 08/12/19 01:15 01:30 01:46 Temperature Pulse Rate 56 L 57 L 56 L Pulse Rate [ From Monitor] Respiratory 20 20 21 Rate Blood Pressure 136/75 137/75 138/77 O2 Sat by Pulse 93 94 95 Oximetry 08/12/19 08/12/19 08/12/19 02:00 02:15 02:30 Temperature Pulse Rate 56 L 56 L 93 H Pulse Rate [ From Monitor] Respiratory 20 20 15 Rate Blood Pressure 135/73 138/75 138/75 O2 Sat by Pulse 96 95 97 Oximetry 08/12/19 08/12/19 08/12/19 02:46 03:00 03:15 Temperature Pulse Rate 56 L 55 L 55 L Pulse Rate [ From Monitor] Respiratory 20 20 20 Rate Blood Pressure 130/68 130/76 149/77 O2 Sat by Pulse 94 94 94 Oximetry 08/12/19 08/12/19 08/12/19 03:26 03:30 03:45 Temperature 99.7 F H Pulse Rate 55 L 53 L Pulse Rate [ From Monitor] Respiratory 20 20 Rate Blood Pressure 147/79 141/73 O2 Sat by Pulse 95 93 Oximetry 08/12/19 08/12/19 08/12/19 04:00 04:15 04:30 Temperature Pulse Rate 54 L 53 L 52 L Pulse Rate [ 54 L From Monitor] Respiratory 20 20 20 Rate Blood Pressure 145/76 146/79 147/84 O2 Sat by Pulse 94 95 95 Oximetry 08/12/19 08/12/19 08/12/19 04:45 05:00 05:15 Temperature Pulse Rate 53 L 52 L 50 L Pulse Rate [ From Monitor] Respiratory 20 20 20 Rate Blood Pressure 150/82 133/76 154/85 O2 Sat by Pulse 93 96 94 Oximetry 08/12/19 08/12/19 08/12/19 05:30 05:46 06:00 Temperature Pulse Rate 53 L 71 56 L Pulse Rate [ From Monitor] Respiratory 20 20 20 Rate Blood Pressure 154/85 120/67 154/81 O2 Sat by Pulse 100 97 92 Oximetry 08/12/19 08/12/19 08/12/19 06:16 06:30 06:45 Temperature Pulse Rate 93 H 56 L 54 L Pulse Rate [ From Monitor] Respiratory 16 20 20 Rate Blood Pressure 154/81 145/77 160/81 O2 Sat by Pulse 93 93 Oximetry 08/12/19 08/12/19 08/12/19 07:00 07:16 07:30 Temperature Pulse Rate 56 L 66 62 Pulse Rate [ From Monitor] Respiratory 20 17 13 Rate Blood Pressure 151/79 151/79 82/46 O2 Sat by Pulse 96 99 98 Oximetry 08/12/19 08/12/19 08/12/19 07:46 08:00 08:16 Temperature 98.9 F Pulse Rate 51 L 49 L 51 L Pulse Rate [ From Monitor] Respiratory 20 20 20 Rate Blood Pressure 151/79 151/79 140/82 O2 Sat by Pulse 93 97 Oximetry 08/12/19 08/12/19 08:30 08:46 Temperature Pulse Rate 59 L 53 L Pulse Rate [ From Monitor] Respiratory 11 L 20 Rate Blood Pressure 142/88 142/88 O2 Sat by Pulse 98 98 Oximetry Constitutional: no acute distress, alert, other (ETT at 24 cm at the lip) Eyes: non-icteric ENT: oropharynx moist, other (no tongue or lip swelling) Neck: supple, no JVD Effort: normal Ascultation: Bilateral: clear, diminished breath sounds Cardiovascular: regular rate and rhythm, other (S1,S2, no murmurs, gallops or rubs) Gastrointestinal: normoactive bowel sounds, soft, non-tender, non-distended Integumentary: normal Extremities: no cyanosis, no edema, pink and warm, pulses normal Neurologic: normal mental status, non-focal exam, pupils equal and round, motor strength normal and Psychiatric: mood appropriate, affect normal CBC and BMP: 08/11/19 04:31 08/11/19 04:31 ABG, PT/INR, D-dimer: ABG ABG pH 7.375 pH Units (7.350-7.450) 08/11/19 03:45 ABG pCO2 43.2 mm Hg 08/11/19 03:45 ABG pO2 124.2 mm Hg (80.0-90.0) H 08/11/19 03:45 ABG O2 Saturation 98.3 % (95.0-99.0) 08/11/19 03:45 Abnormal lab findings: Abnormal Labs 08/10/19 08/10/19 08/10/19 12:49 12:49 13:50 WBC 12.4 H Seg Neutrophils % 75.6 H Seg Neuts % (Manual) Lymphocytes % (Manual) Seg Neutrophils # 9.3 H Seg Neutrophils # Man Lymphocytes # (Manual) ABG pH 7.349 L ABG pO2 226.4 H ABG O2 Saturation 99.3 H ABG Hemoglobin 13.9 L Sodium 136 L Carbon Dioxide Glucose 146 H AST 42 H 08/11/19 08/11/19 08/11/19 03:45 04:31 04:31 WBC 13.2 H Seg Neutrophils % Seg Neuts % (Manual) 93.0 H Lymphocytes % (Manual) 4.0 L Seg Neutrophils # Seg Neutrophils # Man 12.3 H Lymphocytes # (Manual) 0.5 L ABG pH ABG pO2 124.2 H ABG O2 Saturation ABG Hemoglobin 13.8 L Sodium Carbon Dioxide 21 L Glucose 135 H AST Allied health notes reviewed: RT
[2019-08-12] MEDS: diphenhydrAMINE 50 MG/ML VIAL IV SCH ×2 (11:17→21:05)
[2019-08-12] MEDS: FAMOTIDINE 20 MG/2 ML INJ IV SCH ×2 (11:17→21:06)
[2019-08-12] MEDS: HEPARIN 5,000 UNIT/1 ML VIAL SUB-Q SCH ×2 (11:17→21:07)
[2019-08-12] MEDS: hydrALAZINE 20 MG/1 ML INJ IV PRN (16:19)
[2019-08-12] MEDS ORDERED: tiZANidine TAB 4 MG TAB PO PRN (17:05)
--- NOTE | 2019-08-12 17:05 | Progress Note ---
Assessment and Plan / Acute respiratory failure due to angioedema from lisinopril Patient intubated and placed on ventilatory support following admission - ext ubated today cont supplemental oxygen, nebulizer therapy. pulmonary team following / Angioedema cont IV steroid therapy, IV Benadryl, supportive care, lisinopril allergy listed. / Malignant hypertension Monitor blood pressure every shift, IV hydralazine as needed for systolic blood pressure greater than 165. place on Norvasc / SIRS (systemic inflammatory response syndrome) likely from angioedema vs PNA empiric IV antibiotic therapy for now, follow sputum cx / DVT prophylaxis SCD to bilateral lower extremities while in bed, prophylactic heparin. transfer to tele Disposition: follow cx, if remains stable possible d/c tomorrow. Subjective Date of service: 08/12/19 Interval history: Patient seen and examined s/p extubation today denies chest pain, denies SOB reviewed vitals and lab Objective - Exam Narrative Exam: General appearance: Present: no acute distress, well-nourished, - EENT Eyes: PERRL, EOM intact ENT: hearing intact, clear oral mucosa Ears: bilateral: normal - Neck Neck: supple, normal ROM - Respiratory Respiratory effort: normal, Respiratory: bilateral: CTA - Cardiovascular Rhythm: regular Heart Sounds: Present: S1 & S2. Absent: gallop, rub Extremities: pulses intact, No edema, normal color, Full ROM - Gastrointestinal General gastrointestinal: Present: soft, non-tender, non-distended, normal bowel sounds - Integumentary Integumentary: clear, warm, dry - Musculoskeletal Musculoskeletal: 1, strength equal bilaterally - Neurologic Neurologic: moves all extremities - Psychiatric Psychiatric: cooperative, other (follows commend) - Constitutional Vitals: Vital Signs - 12hr 08/12/19 08/12/19 08/12/19 05:15 05:30 05:46 Temperature Pulse Rate 50 L 53 L 71 Respiratory 20 20 20 Rate Blood Pressure 154/85 154/85 120/67 O2 Sat by Pulse 94 100 97 Oximetry 08/12/19 08/12/19 08/12/19 06:00 06:16 06:30 Temperature Pulse Rate 56 L 93 H 56 L Respiratory 20 16 20 Rate Blood Pressure 154/81 154/81 145/77 O2 Sat by Pulse 92 93 Oximetry 08/12/19 08/12/19 08/12/19 06:45 07:00 07:16 Temperature Pulse Rate 54 L 56 L 66 Respiratory 20 20 17 Rate Blood Pressure 160/81 151/79 151/79 O2 Sat by Pulse 93 96 99 Oximetry 08/12/19 08/12/19 08/12/19 07:30 07:46 08:00 Temperature 98.9 F Pulse Rate 62 51 L 49 L Respiratory 13 20 20 Rate Blood Pressure 82/46 151/79 151/79 O2 Sat by Pulse 98 93 97 Oximetry 08/12/19 08/12/19 08/12/19 08:16 08:30 08:46 Temperature Pulse Rate 51 L 59 L 53 L Respiratory 20 11 L 20 Rate Blood Pressure 140/82 142/88 142/88 O2 Sat by Pulse 98 98 Oximetry 08/12/19 08/12/19 08/12/19 09:00 09:16 09:30 Temperature Pulse Rate 64 66 66 Respiratory 15 12 10 L Rate Blood Pressure 142/88 142/88 142/88 O2 Sat by Pulse 98 98 98 Oximetry 08/12/19 08/12/19 08/12/19 09:46 10:00 10:16 Temperature Pulse Rate 99 H 63 75 Respiratory 15 17 14 Rate Blood Pressure 115/79 152/83 153/78 O2 Sat by Pulse 98 96 99 Oximetry 08/12/19 08/12/19 08/12/19 10:30 10:46 11:00 Temperature Pulse Rate 63 55 L 78 Respiratory 15 13 17 Rate Blood Pressure 153/78 153/78 153/78 O2 Sat by Pulse 100 95 100 Oximetry 08/12/19 08/12/19 08/12/19 11:16 11:30 11:46 Temperature Pulse Rate 63 51 L 72 Respiratory 11 L 12 10 L Rate Blood Pressure 153/78 153/78 154/79 O2 Sat by Pulse 97 99 99 Oximetry 08/12/19 08/12/19 08/12/19 12:00 12:16 12:30 Temperature Pulse Rate 49 L 52 L 75 Respiratory 12 14 9 L Rate Blood Pressure 154/79 99/68 99/68 O2 Sat by Pulse 100 97 96 Oximetry 08/12/19 08/12/19 08/12/19 12:46 13:00 13:16 Temperature Pulse Rate 66 62 60 Respiratory 15 15 16 Rate Blood Pressure 99/68 99/68 99/68 O2 Sat by Pulse 95 100 100 Oximetry 08/12/19 08/12/19 08/12/19 13:30 13:32 13:46 Temperature Pulse Rate 65 66 Respiratory 16 13 Rate Blood Pressure 99/68 99/68 O2 Sat by Pulse 100 100 97 Oximetry 08/12/19 08/12/19 08/12/19 14:00 14:16 14:30 Temperature Pulse Rate 59 L 58 L 59 L Respiratory 13 16 13 Rate Blood Pressure 99/68 149/80 149/80 O2 Sat by Pulse 99 94 96 Oximetry 08/12/19 08/12/19 08/12/19 14:46 15:00 16:19 Temperature Pulse Rate 81 62 62 Respiratory 15 14 Rate Blood Pressure 149/80 149/80 171/88 O2 Sat by Pulse 100 96 Oximetry - Labs CBC & Chem 7: 08/11/19 04:31 08/11/19 04:31
[2019-08-12] MEDS ORDERED: NON-FORMULARY EACH (Duloxetine 30 MG) PO SCH (17:15)
[2019-08-12] MEDS: DULoxetine 30 MG CAP PO SCH (18:48)
[2019-08-12] MEDS ORDERED: NON-FORMULARY EACH (Gabapentin 300 MG) PO SCH (20:00)
[2019-08-12] MEDS: GABAPENTIN 300 MG CAP PO SCH (21:05)
[2019-08-12] MEDS ORDERED: methylPREDNISolone Sod Succinate 40 MG/1 ML INJ IV SCH (22:00)
[2019-08-13] MEDS: GABAPENTIN 300 MG CAP PO SCH (05:40)
[2019-08-13 07:43] VITALS: BP 151/89
--- NOTE | 2019-08-13 09:38 | Progress Note ---
Assessment and Plan Patient initially admitted for angioedema. He reported taking lisinopril. He is awake and alert. His tongue swelling has improved. Patient is resting on room air with O2 saturation 91%. He denies chest pain and shortness of breath. Patient is afebrile with Leukocytosis. He denies history of smoking. 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 He has 2 children. Patient ABG 08/11/2019 reported pH 7.37/ pCO2 43/ pO2 124/ HCO3 25/ O2 Sat 98%/ FiO2 35% CXR 08/12/2019 Reported No significant abnormality. - Patient Problems (1) Acute respiratory failure Current Visit: Yes Status: Acute Plan to address problem: Patient improved and currently on room air with O2 saturation 91%. No complaints of chest pain and shortness of breath. (2) Angioedema Current Visit: Yes Status: Acute Qualifiers: Encounter type: initial encounter Qualified Code(s): T78.3XXA - Angioneurotic edema, initial encounter Plan to address problem: Tongue swelling has improved. No complaints of shortness of breath. (3) Malignant hypertension Current Visit: Yes Status: Acute Plan to address problem: Managment as per primary care Subjective Date of service: 08/13/19 Interval history: Patient initially admitted for angioedema. He reported taking lisinopril. He is awake and alert. His tongue swelling has improved. Patient is resting on room air with O2 saturation 91%. He denies chest pain and shortness of breath. Patient is afebrile with Leukocytosis. He denies history of smoking. 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 He has 2 children. Patient ABG 08/11/2019 reported pH 7.37/ pCO2 43/ pO2 124/ HCO3 25/ O2 Sat 98%/ FiO2 35% CXR 08/12/2019 Reported No significant abnormality. Objective Vital Signs - 12hr 08/12/19 08/12/19 08/13/19 22:00 23:51 04:16 Temperature 98.8 F 98.5 F Pulse Rate 99 H 67 63 Respiratory 16 16 Rate Blood Pressure 135/78 136/69 O2 Sat by Pulse 93 91 Oximetry 08/13/19 08/13/19 07:42 09:13 Temperature 98.2 F Pulse Rate 66 Respiratory 18 Rate Blood Pressure 151/89 O2 Sat by Pulse 98 96 Oximetry Constitutional: no acute distress, alert, other (ETT at 24 cm at the lip) Eyes: non-icteric ENT: oropharynx moist, other (no tongue or lip swelling) Neck: supple, no JVD Effort: normal Ascultation: Bilateral: diminished breath sounds Cardiovascular: regular rate and rhythm, other (S1,S2, no murmurs, gallops or rubs) Gastrointestinal: normoactive bowel sounds, soft, non-tender, non-distended Integumentary: normal Extremities: no cyanosis, no edema, pink and warm, pulses normal Neurologic: normal mental status, non-focal exam, pupils equal and round, motor strength normal and Psychiatric: mood appropriate, affect normal CBC and BMP: 08/11/19 04:31 08/11/19 04:31 ABG, PT/INR, D-dimer: ABG ABG pH 7.375 pH Units (7.350-7.450) 08/11/19 03:45 ABG pCO2 43.2 mm Hg 08/11/19 03:45 ABG pO2 124.2 mm Hg (80.0-90.0) H 08/11/19 03:45 ABG O2 Saturation 98.3 % (95.0-99.0) 08/11/19 03:45 Abnormal lab findings: Abnormal Labs 08/10/19 08/10/19 08/10/19 12:49 12:49 13:50 WBC 12.4 H Seg Neutrophils % 75.6 H Seg Neuts % (Manual) Lymphocytes % (Manual) Seg Neutrophils # 9.3 H Seg Neutrophils # Man Lymphocytes # (Manual) ABG pH 7.349 L ABG pO2 226.4 H ABG O2 Saturation 99.3 H ABG Hemoglobin 13.9 L Sodium 136 L Carbon Dioxide Glucose 146 H AST 42 H 08/11/19 08/11/19 08/11/19 03:45 04:31 04:31 WBC 13.2 H Seg Neutrophils % Seg Neuts % (Manual) 93.0 H Lymphocytes % (Manual) 4.0 L Seg Neutrophils # Seg Neutrophils # Man 12.3 H Lymphocytes # (Manual) 0.5 L ABG pH ABG pO2 124.2 H ABG O2 Saturation ABG Hemoglobin 13.8 L Sodium Carbon Dioxide 21 L Glucose 135 H AST Chest x-ray: report reviewed (No significant abnormality.), image reviewed Allied health notes reviewed: RT
[2019-08-13] MEDS: DULoxetine 30 MG CAP PO SCH (09:53)
[2019-08-13] MEDS: HEPARIN 5,000 UNIT/1 ML VIAL SUB-Q SCH (09:53)
[2019-08-13] MEDS ORDERED: amLODIPine 10 MG TAB PO SCH (12:00)
--- NOTE | 2019-08-13 12:02 | Discharge Summary ---
Providers - Providers Date of Admission: 08/10/19 13:46 Date of discharge: 08/13/19 Attending physician: NICOLE HARLEY 08/10/19 12:33 Consult to Physician [CONS] Stat Comment: Consulting Provider: FARIBA SANTAMARIA Physician Instructions: Reason For Exam: difficult airway 08/10/19 12:35 Consult to Dietitian/Nutrition [CONS] Routine Physician Instructions: Reason For Exam: Reason for Consult: Evaluate nutritional intake 08/10/19 13:46 Consult to Physician [CONS] Routine Comment: CONSULT TO ADV PT IN ER [id number] Consulting Provider: JULIO HRENANDEZ Physician Instructions: Reason For Exam: repiratory failure/Intubated on vent [facility] Hospital[facility] Condition: Stable Pertinent studies: Neck CT CXR Hospital course: Discharge diagnosis and Mx: / Acute respiratory failure due to angioedema from lisinopril Patient intubated and placed on ventilatory support following admission - s/p extubated Mx with supplemental oxygen, nebulizer therapy. pulmonary team was following Patient was discharged on stable condition / Angioedema Mx with IV steroid therapy, IV Benadryl, supportive care, lisinopril allergy listed. / Malignant hypertension - resolved Monitored blood pressure every shift, IV hydralazine given as needed for systolic blood pressure greater than 165. placed on Norvasc / SIRS (systemic inflammatory response syndrome) likely from angioedema, sputum Cx negative s/p empiric IV antibiotic therapy - no abx given on discharge / DVT prophylaxis SCD to bilateral lower extremities while in bed, prophylactic heparin. Disposition: d/c home Disposition: DC-30 STILL A PATIENT Time spent for discharge: 34 minutes Core Measure Documentation - Palliative Care Palliative Care/ Comfort Measures: Not Applicable - Core Measures Any of the following diagnoses?: none Exam - Physical Exam Narrative exam: General appearance: Present: no acute distress, well-nourished, - EENT Eyes: PERRL, EOM intact ENT: hearing intact, clear oral mucosa Ears: bilateral: normal - Neck Neck: supple, normal ROM - Respiratory Respiratory effort: normal, Respiratory: bilateral: CTA - Cardiovascular Rhythm: regular Heart Sounds: Present: S1 & S2. Absent: gallop, rub Extremities: pulses intact, No edema, normal color, Full ROM - Gastrointestinal General gastrointestinal: Present: soft, non-tender, non-distended, normal bowel sounds - Integumentary Integumentary: clear, warm, dry - Musculoskeletal Musculoskeletal: 1, strength equal bilaterally - Neurologic Neurologic: moves all extremities - Psychiatric Psychiatric: cooperative, other (follows commend) - Constitutional Vitals: Temp Pulse Resp BP Pulse Ox 98.2 F 66 18 151/89 96 08/13/19 07:42 08/13/19 07:42 08/13/19 07:42 08/13/19 07:42 08/13/19 09:13 Plan Activity: advance as tolerated Weight Bearing Status: Weight Bear as Tolerated Diet: low fat, low salt Follow up with: SHUN CLIFTON MD [Primary Care Provider] - 3-5 Days Prescriptions: amLODIPine 10 mg PO QDAY #30 tablet diphenhydrAMINE [Benadryl CAP] 25 mg PO Q6HR PRN #14 capsule PRN Reason: Allergic Reaction EPINEPHrine (NF) [Epipen (Nf)] 0.3 mg IM ONCE PRN #1 syringekit PRN Reason: Anaphylaxis
== END 2019-08-13 14:50 | disposition home or self-care (01) | DRG 208 ==
LOC: ED 11:24 → CC1 13:46 → 4A 08-12 19:55
PROVIDERS: ADMIT Internal Medicine; ATTEND Internal Medicine
PROC: 4A033R1 Measurement of Arterial Saturation, Peripheral, Percutaneous Approach (ICD-10-PCS; principal; 2019-08-10)
PROC: 5A1945Z Respiratory Ventilation, 24-96 Consecutive Hours (ICD-10-PCS; 2019-08-10)
PROC: 0BH17EZ Insertion of Endotracheal Airway into Trachea, Via Natural or Artificial Opening (ICD-10-PCS; 2019-08-10)
DX: J96.00 Acute respiratory failure, unspecified whether with hypoxia or hypercapnia (principal); R65.10 Systemic inflammatory response syndrome (SIRS) of non-infectious origin without acute organ dysfunction; T46.4X5A Adverse effect of angiotensin-converting-enzyme inhibitors, initial encounter; T78.3XXA Angioneurotic edema, initial encounter; E66.9 Obesity, unspecified; I10 Essential (primary) hypertension; Y92.098 Other place in other non-institutional residence as the place of occurrence of the external cause; Z82.49 Family history of ischemic heart disease and other diseases of the circulatory system; Z68.26 Body mass index [BMI] 26.0-26.9, adult
CPT/HCPCS: 36415; 70492; 71045; 80048; 80053; 82803; 85007; 85025; 87070; 87205; 94002; 94003; 94760; G0378; J0330; J0360; J1200; J1644; J1956; J2250; J2704; J2920; J2930; J3010; J7030; Q9967

== ENCOUNTER 2021-10-13 14:47 | Emergency (ER) | payer SELFPAY ==
--- NOTE | 2021-10-13 17:23 | Emergency Department Report ---
HPI - General Chief Complaint: Psych Time Seen by Provider: 10/13/21 17:07 - HPI HPI: Room 3 The patient is a 46-year-old male present with a chief complaint of depression. Patient states he has been depressed for 1 week stating he recently lost a job. Patient denies suicidal homicidal ideation. Patient denies auditory or visual hallucinations. 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 - Surgical History Additional Surgical History: Right shoulder - Family History Family history: no significant - Social History Smoking Status: Former Smoker (None x5 years) Substance Use Type: None (Denies illicit drug use), Alcohol (Occasional) - Medications Home Medications: Home Medications Medication Instructions Recorded Confirmed Last Taken Type DULoxetine 30 mg PO QDAY 08/11/19 08/11/19 Unknown History Dexamethasone 4 mg PO BID 08/11/19 08/11/19 Unknown History Gabapentin 300 mg PO TID 08/11/19 08/11/19 Unknown History tiZANidine [Zanaflex 4mg TAB] 4 mg PO BID PRN 08/11/19 08/11/19 Unknown History EPINEPHrine (NF) [Epipen (Nf)] 0.3 mg IM ONCE PRN #1 syringekit 08/13/19 Unknown Rx amLODIPine 10 mg PO QDAY #30 tablet 08/13/19 Unknown Rx diphenhydrAMINE [Benadryl CAP] 25 mg PO Q6HR PRN #14 capsule 08/13/19 Unknown Rx ED Review of Systems ROS: Stated complaint: THREATING/HYPERTENSION Other details as noted in HPI Constitutional: no symptoms reported Eyes: denies: eye pain ENT: denies: throat pain Respiratory: no symptoms reported Cardiovascular: denies: chest pain Endocrine: no symptoms reported Gastrointestinal: denies: abdominal pain Genitourinary: denies: dysuria Musculoskeletal: denies: back pain Neurological: denies: headache Psychiatric: depression. denies: auditory hallucinations, visual hallucinations, homicidal thoughts, suicidal thoughts Physical Exam - Physical Exam Vital Signs: Vital Signs 10/13/21 10/13/21 10/13/21 15:02 17:14 17:15 Temperature 99.2 F Pulse Rate 68 62 Respiratory 16 18 Rate Blood Pressure 248/140 154/92 [Left] O2 Sat by Pulse 99 96 96 Oximetry Physical Exam: GENERAL: The patient is well-developed well-nourished male lying on stretcher not appearing to be in acute distress. [] HEENT: Normocephalic. Atraumatic. Extraocular motions are intact. Patient has moist mucous membranes. NECK: Supple. Trachea midline CHEST/LUNGS: Clear to auscultation. There is no respiratory distress noted. HEART/CARDIOVASCULAR: Regular. There is no tachycardia. There is no gallop rub or murmur. ABDOMEN: Abdomen is soft, nontender. Patient has normal bowel sounds. There is no abdominal distention. SKIN: There is no rash. There is no edema. There is no diaphoresis. NEURO: The patient is awake, alert, and oriented. The patient is cooperative. The patient has no focal neurologic deficits. The patient has normal speech. GCS 15 MUSCULOSKELETAL: There is no evidence of acute injury. ED Course Vital Signs 10/13/21 10/13/21 10/13/21 15:02 17:14 17:15 Temperature 99.2 F Pulse Rate 68 62 Respiratory 16 18 Rate Blood Pressure 248/140 154/92 [Left] O2 Sat by Pulse 99 96 96 Oximetry ED Medical Decision Making - Lab Data Result diagrams: 10/13/21 Unknown 10/13/21 17:27 Laboratory Tests 10/13/21 10/13/21 10/13/21 17:27 17:27 17:50 WBC RBC Hgb Hct MCV MCH MCHC RDW Plt Count Lymph % (Auto) Hernando % (Auto) Eos % (Auto) Baso % (Auto) Lymph # (Auto) Hernando # (Auto) Eos # (Auto) Baso # (Auto) Seg Neutrophils % Seg Neutrophils # Sodium 137 Potassium 4.6 Chloride 98.9 Carbon Dioxide 25 Anion Gap 18 BUN 13 Creatinine 1.2 Estimated GFR > 60 BUN/Creatinine Ratio 11 Glucose 89 Calcium 9.7 Total Bilirubin 0.80 AST 35 ALT 26 Alkaline Phosphatase 105 Total Protein 8.3 H Albumin 4.4 Albumin/Globulin Ratio 1.1 Urine Color Yellow Urine Turbidity Clear Urine pH 6.0 Ur Specific [place] 1.014 Urine Protein 30 mg/dl Urine Glucose (UA) Neg Urine Ketones 20 Urine Blood Neg Urine Nitrite Neg Urine Bilirubin Neg Urine Urobilinogen < 2.0 Ur Leukocyte Esterase Neg Urine WBC (Auto) < 1.0 Urine RBC (Auto) < 1.0 U Epithel Cells (Auto) < 1.0 Urine Mucus Few Salicylates < 0.3 L Urine Opiates Screen Urine Methadone Screen Acetaminophen Ur Barbiturates Screen Ur Phencyclidine Scrn Ur Amphetamines Screen U Benzodiazepines Scrn Urine Cocaine Screen U Marijuana (THC) Screen Drugs of Abuse Note Plasma/Serum Alcohol 10/13/21 10/13/21 10/13/21 17:50 Unknown Unknown WBC 7.2 RBC 4.89 Hgb 15.5 H Hct 46.1 H MCV 94 MCH 32 MCHC 34 RDW 14.6 Plt Count 230 Lymph % (Auto) Kn[employer]ter [employer]er Hernando % (Auto) Knife Setter Assembler Eos % (Auto) Knife Setter As[employer]er Baso % (Auto) Knife Setter As[employer]er Lymph # (Auto) Knife Setter Assembler Hernando # (Auto) Knife Setter Assembler Eos # (Auto) Knife Setter Assembler Baso # (Auto) Knife Setter Assembler Seg Neutrophils % Knife Setter Assembler Seg Neutrophils # Knife Setter Assembler Sodium Potassium Chloride Carbon Dioxide Anion Gap BUN Creatinine Estimated GFR BUN/Creatinine Ratio Glucose Calcium Total Bilirubin AST ALT Alkaline Phosphatase Total Protein Albumin Albumin/Globulin Ratio Urine Color Urine Turbidity Urine pH Ur Specific [place] Urine Protein Urine Glucose (UA) Urine Ketones Urine Blood Urine Nitrite Urine Bilirubin Urine Urobilinogen Ur Leukocyte Esterase Urine WBC (Auto) Urine RBC (Auto) U Epithel Cells (Auto) Urine Mucus Salicylates Urine Opiates Screen Negative Urine Methadone Screen Negative Acetaminophen 5.0 L Ur Barbiturates Screen Negative Ur Phencyclidine Scrn Negative Ur Amphetamines Screen Negative U Benzodiazepines Scrn Negative Urine Cocaine Screen Negative U Marijuana (THC) Screen Positive Drugs of Abuse Note Disclamer Plasma/Serum Alcohol 10/13/21 Unknown WBC RBC Hgb Hct MCV MCH MCHC RDW Plt Count Lymph % (Auto) Hernando % (Auto) Eos % (Auto) Baso % (Auto) Lymph # (Auto) Hernando # (Auto) Eos # (Auto) Baso # (Auto) Seg Neutrophils % Seg Neutrophils # Sodium Potassium Chloride Carbon Dioxide Anion Gap BUN Creatinine Estimated GFR BUN/Creatinine Ratio Glucose Calcium Total Bilirubin AST ALT Alkaline Phosphatase Total Protein Albumin Albumin/Globulin Ratio Urine Color Urine Turbidity Urine pH Ur Specific [place] Urine Protein Urine Glucose (UA) Urine Ketones Urine Blood Urine Nitrite Urine Bilirubin Urine Urobilinogen Ur Leukocyte Esterase Urine WBC (Auto) Urine RBC (Auto) U Epithel Cells (Auto) Urine Mucus Salicylates Urine Opiates Screen Urine Methadone Screen Acetaminophen Ur Barbiturates Screen Ur Phencyclidine Scrn Ur Amphetamines Screen U Benzodiazepines Scrn Urine Cocaine Screen U Marijuana (THC) Screen Drugs of Abuse Note Plasma/Serum Alcohol < 0.01 - Differential Diagnosis Depression Critical care attestation.: If time is entered above; I have spent that time in minutes in the direct care of this critically ill patient, excluding procedure time. ED Disposition Clinical Impression: Mood disorder Disposition: 01 HOME / SELF CARE / HOMELESS Is pt being admited?: No Does the pt Need Aspirin: No Condition: Stable Additional Instructions: HOMELESS RESOURCES: [facility] NEED HELP? If you are in need of help or know someone who does, please contact us at [email or web address] call , or come to our offices at [address] [place] [address], Sunday-Sunday beginning 9:30 AM-1:30 PM -Support services help people with getting identification and legal documents -Homeless verification letter -Facesheet (if needed) [facility] Males only Admission at 7am Sun to Sun Address: [address] [place] [address] Client Engagement [phone] Regular program admission occurs Sunday through Sunday at 7:00 amand operates on a first come, first serve basis.Because we cant anticipate program availability in advance andprogram spots are in high demand, we recommend arriving early. Space fills up fast! Next steps can include: Assignment to a [facility] program bed Connection to and placement in a partner program, or Referral to a partner agency [facility] [place] only Admission at 4:30pm daily Address: [place] [address] [facility] Admission from 8am to 10am Daily Address: [place] [address] Professional and Agency Contacts To help [facility] (05/02) [place] Crisis Line: Suicide Prevention Line: Crisis Text Line: Text START to 070785 Emergency: 911 Outpatient COMMUNITY Behavioral Health Resources: [place]: [facility] [address] [place], [place] [address] [place]: [facility] [address] [place] [address] Sunday thru Sunday - 8am - 5pm Call to schedule an assessment for mental health and substance abuse programs [place]: [facility] Address: [address] [place] [address] Sunday thru Sunday- 7am-2pm [facility] Address: [address] [place] [id number] Sunday thru Sunday: 8:30AM-5PM Referrals: PRIMARY CAREMD [Primary Care Provider] - 3-5 Days Time of Disposition: 19:29
[2021-10-13 18:18] LABS: Hematocrit 46.1 % (35.5-45.6); Hemoglobin 15.5 gm/dl (11.8-15.2); Mean Corpuscular HGB Conc 34 % (32-34); Mean Corpuscular Volume 94 fl (84-94); Platelet Count 230 K/mm3 (140-440); Red Blood Count 4.89 M/mm3 (3.65-5.03); Red Cell Distribution Width 14.6 % (13.2-15.2)
[2021-10-13 18:22] LABS: Alanine Aminotransferase 26 units/L (7-56); Albumin 4.4 g/dL (3.9-5); BUN/Creatinine Ratio 11; Blood Urea Nitrogen 13 mg/dL (9-20); Calcium 9.7 mg/dL (8.4-10.2); Hemolysis Index 15
[2021-10-13 18:22] LABS: Bilirubin,Urine NEG (Negative); Blood,Urine NEG (Negative); Color,Urine Yellow (Yellow); RBC,Urine < 1.0 /HPF (0.0-6.0); Urobilinogen,Urine < 2.0 mg/dL (<2.0); WBC,Urine < 1.0 /HPF (0.0-6.0)
[2021-10-13 18:31] VITALS: BP 152/91
[2021-10-13 18:41] LABS: Mucus,Urine FEW /HPF
[2021-10-13 18:48] LABS: Amphetamine Screen,Urine Negative; Benzodiazepines Screen,Urine Negative; Cocaine Screen,Urine Negative; Methadone Screen,Urine Negative; Opiate Screen,Urine Negative
[2021-10-13 18:49] LABS: Cannabinoid Screen,Urine Positive
== END 2021-10-13 19:56 | disposition home or self-care (01) ==
LOC: ED 14:47
DX: F39 Unspecified mood [affective] disorder (principal); Z87.891 Personal history of nicotine dependence; I10 Essential (primary) hypertension; Z79.899 Other long term (current) drug therapy
CPT/HCPCS: 36415; 80053; 80307; 80320; 81001; 85025; 99284; G0480

== ENCOUNTER 2022-02-20 17:32 | Emergency (ER) | payer SELFPAY ==
[2022-02-20 17:52] VITALS: BP 125/80
--- NOTE | 2022-02-21 03:03 | Emergency Department Report ---
- General Chief Complaint: Upper Respiratory Infection Stated Complaint: COLD CHILLS Source: patient Mode of arrival: Ambulatory Limitations: No Limitations - History of Present Illness Initial Comments: Patient is a 46-year-old -Citizen Of [place] male with a history of hypertension and depression who presents to the ED with complaint of acute onset persistent nasal and sinus congestion, persistent dry cough and body aches and pains for the last 2 days. Patient states that he has been taking [id number] medications which appear to be helping. Patient denies dizziness, syncope, fever, chills, nausea and vomiting, chest pain, shortness of breath, abdominal pain, sore throat, headache, change in vision, diarrhea, dysuria, urinary frequency and urgency or lightheadedness. MD Complaint: cough, rhinorrhea, nasal congestion -: Gradual Severity: moderate Severity scale (0 -10): 4 Quality: dull, aching Consistency: constant Improves With: nothing Worsens With: nothing Associated Symptoms: denies other symptoms, headache, rhinorrhea, nasal congestion, cough. denies: fever, chills, myalgias, diaphoresis, sore throat, stiff neck, chest pain, shortness of breath, nausea, vomiting, diarrhea, rash, confusion, weight loss, epistaxis, hoarseness, ear pain Treatments Prior to Arrival: "cold medicine" - Related Data Home Medications Medication Instructions Recorded Confirmed Last Taken DULoxetine 30 mg PO QDAY 08/11/19 08/11/19 Unknown Dexamethasone 4 mg PO BID 08/11/19 08/11/19 Unknown Gabapentin 300 mg PO TID 08/11/19 08/11/19 Unknown tiZANidine [Zanaflex 4mg TAB] 4 mg PO BID PRN 08/11/19 08/11/19 Unknown Previous Rx's Medication Instructions Recorded Last Taken Type EPINEPHrine (NF) [Epipen (Nf)] 0.3 mg IM ONCE PRN #1 syringekit 08/13/19 Unknown Rx amLODIPine 10 mg PO QDAY #30 tablet 08/13/19 Unknown Rx diphenhydrAMINE [Benadryl CAP] 25 mg PO Q6HR PRN #14 capsule 08/13/19 Unknown Rx Benzonatate [Tessalon Perles] 100 mg PO Q8HR #30 cap 02/21/22 Unknown Rx Cetirizine HCl [Zyrtec 10mg tab] 10 mg PO DAILY #30 tab 02/21/22 Unknown Rx predniSONE [Deltasone] 40 mg PO QDAY #10 tab 02/21/22 Unknown Rx Allergies Allergy/AdvReac Type Severity Reaction Status Date / Time lisinopril Allergy Angioedema Verified 02/20/22 17:52 ED Review of Systems ROS: Stated complaint: COLD CHILLS Other details as noted in HPI Constitutional: denies: chills, fever Eyes: denies: eye pain, eye discharge, vision change ENT: congestion. denies: ear pain, throat pain Respiratory: cough. denies: shortness of breath, wheezing Cardiovascular: denies: chest pain, palpitations Endocrine: no symptoms reported Gastrointestinal: denies: abdominal pain, nausea, vomiting, diarrhea Genitourinary: denies: urgency, dysuria Musculoskeletal: arthralgia, myalgia. denies: back pain, joint swelling Skin: denies: rash, lesions Neurological: denies: headache, weakness, paresthesias Psychiatric: denies: anxiety, depression Hematological/Lymphatic: denies: easy bleeding, easy bruising ED Past Medical Hx - Past Medical History Hx Hypertension: Yes Hx Psychiatric Treatment: Yes (depressed) Additional medical history: bulging discs in lower back - Surgical History Additional Surgical History: Right shoulder - Social History Smoking Status: Former Smoker (None x5 years) Substance Use Type: None (Denies illicit drug use), Alcohol (Occasional) - Medications Home Medications: Home Medications Medication Instructions Recorded Confirmed Last Taken Type DULoxetine 30 mg PO QDAY 08/11/19 08/11/19 Unknown History Dexamethasone 4 mg PO BID 08/11/19 08/11/19 Unknown History Gabapentin 300 mg PO TID 08/11/19 08/11/19 Unknown History tiZANidine [Zanaflex 4mg TAB] 4 mg PO BID PRN 08/11/19 08/11/19 Unknown History EPINEPHrine (NF) [Epipen (Nf)] 0.3 mg IM ONCE PRN #1 syringekit 08/13/19 Unknown Rx amLODIPine 10 mg PO QDAY #30 tablet 08/13/19 Unknown Rx diphenhydrAMINE [Benadryl CAP] 25 mg PO Q6HR PRN #14 capsule 08/13/19 Unknown Rx Benzonatate [Tessalon Perles] 100 mg PO Q8HR #30 cap 02/21/22 Unknown Rx Cetirizine HCl [Zyrtec 10mg tab] 10 mg PO DAILY #30 tab 02/21/22 Unknown Rx predniSONE [Deltasone] 40 mg PO QDAY #10 tab 02/21/22 Unknown Rx ED Physical Exam - General Limitations: No Limitations General appearance: alert, in no apparent distress - Head Head exam: Present: atraumatic, normocephalic, normal inspection - Eye Eye exam: Present: normal appearance, PERRL, EOMI Pupils: Present: normal accommodation - ENT ENT exam: Present: mucous membranes moist, TM's normal bilaterally, normal external ear exam, other (Grossly congested nasal passages) - Neck Neck exam: Present: normal inspection, full ROM. Absent: tenderness - Respiratory Respiratory exam: Present: normal lung sounds bilaterally. Absent: respiratory distress, wheezes, rales, rhonchi, chest wall tenderness, accessory muscle use, decreased breath sounds, prolonged expiratory - Cardiovascular Cardiovascular Exam: Present: regular rate, normal rhythm, normal heart sounds. Absent: systolic murmur, diastolic murmur, rubs, gallop - GI/Abdominal GI/Abdominal exam: Present: soft, normal bowel sounds. Absent: tenderness, guarding, hyperactive bowel sounds, hypoactive bowel sounds, organomegaly - Extremities Exam Extremities exam: Present: normal inspection, full ROM, normal capillary refill. Absent: tenderness - Back Exam Back exam: Present: normal inspection, full ROM. Absent: tenderness, CVA tenderness (R), CVA tenderness (L), muscle spasm, paraspinal tenderness, vertebral tenderness - Neurological Exam Neurological exam: Present: alert, oriented X3, CN II-XII intact, normal gait, reflexes normal - Psychiatric Psychiatric exam: Present: normal affect, normal mood - Skin Skin exam: Present: warm, dry, intact, normal color. Absent: rash ED Course Vital Signs 02/20/22 17:47 Temperature 98.8 F Pulse Rate 88 Respiratory 20 Rate Blood Pressure 125/80 [Left] O2 Sat by Pulse 94 Oximetry ED Medical Decision Making - Radiology Data Radiology results: image reviewed Chest x-ray showed no acute cardiopulmonary abnormalities or pneumonitis. - Medical Decision Making This is a 46-year-old -Citizen [place] male with a history of hypertension and depression who presents to the ED with complaint of acute onset persistent nasal and sinus congestion, persistent dry cough and body aches and pains for the last 2 days. Patient states that he has been taking [id number] medications which appear to be helping. In the ED, patient is alert and oriented x3 and is not in any distress. Chest x-ray showed no acute cardiopulmonary abnormalities or pneumonitis. Patient will discharge home on medications and advised to follow-up with his primary care physician in 7 to 10 days for reevaluation or return to the ED immediately if symptoms get worse. - Differential Diagnosis URI; bronchitis; rhinitis; sinusitis; pneumonia; Critical care attestation.: If time is entered above; I have spent that time in minutes in the direct care of this critically ill patient, excluding procedure time. ED Disposition Clinical Impression: Acute upper respiratory infection, Acute allergic rhinitis Acute bronchitis Qualifiers: Bronchitis organism: other organism Qualified Code(s): J20.8 - Acute bronchitis due to other specified organisms Disposition: HOME / SELF CARE / HOMELESS Is pt being admited?: No Does the pt Need Aspirin: No Condition: Stable Instructions: Acute Bronchitis (ED), Cough, Adult, [id number], Acute Bronchitis, Adult, [id number] Additional Instructions: Chest x-ray showed no acute cardiopulmonary abnormalities or pneumonitis. Therefore take medications with food, drink plenty of fluids, follow-up with your primary care physician in 7 to 10 days for reevaluation. Return to the ED immediately if symptoms get worse. Prescriptions: predniSONE [Deltasone] 40 mg PO QDAY #10 tab Benzonatate [Tessalon Perles] 100 mg PO Q8HR #30 cap Cetirizine HCl [Zyrtec 10mg tab] 10 mg PO DAILY #30 tab Referrals: [facility] [Provider Group] - 3-5 Days Forms: Work/School Release Form(ED) Time of Disposition: 03:03 Print Language: KYRGYZ
--- NOTE | 2022-02-21 05:20 | XRay Report ---
XR chest 1V ap INDICATION / CLINICAL INFORMATION: COUGH. COMPARISON: 08/12/2019. FINDINGS: SUPPORT DEVICES: None. HEART /PULMONARY VASCULATURE: No significant abnormality. LUNGS / PLEURA: No focal airspace consolidation. No sizable pleural effusion. No pneumothorax. ADDITIONAL FINDINGS: No significant additional findings. IMPRESSION: 1. No acute findings. Signer Name: Mt Xie MD Signed: 02/21/2022 5:16 AM Workstation Name: [id number]
== END 2022-02-21 04:48 | disposition home or self-care (01) ==
LOC: ED 17:32
DX: J06.9 Acute upper respiratory infection, unspecified (principal); J30.9 Allergic rhinitis, unspecified; J20.9 Acute bronchitis, unspecified; I10 Essential (primary) hypertension; F32.A Depression, unspecified; Z87.891 Personal history of nicotine dependence; Z91.09 Other allergy status, other than to drugs and biological substances; Z79.899 Other long term (current) drug therapy
CPT/HCPCS: 71045; 99283